=== PATIENT | male | born 1965 | race African-American/Black ===

== ENCOUNTER 2024-01-03 18:16 | Inpatient (IN) | payer OTHER ==
[2024-01-03 19:00] VITALS: BMI 27.3
[2024-01-03] MEDS ORDERED: NALOXONE HCL (KLOXXADO) 8 MG SPRAY NS PRN (20:42)
[2024-01-03] MEDS ORDERED: BISMUTH SUBSALICYLATE 524 MG/30 ML PO PRN (20:42)
[2024-01-03] MEDS ORDERED: BENZOCAINE/MENTHOL (CHLORASEPTIC ) LOZENGE MM PRN (20:42)
[2024-01-03] MEDS ORDERED: MAG HYDROX/AL HYDROX/SIMETH 30 ML UNIT-DOSE CUP PO PRN (20:42)
[2024-01-03] MEDS ORDERED: guaiFENesin 600 MG TABLET.ER (FP) PO PRN (20:42)
[2024-01-03] MEDS ORDERED: NALOXONE HCL 0.4 MG/ML VIAL IM PRN (20:42)
[2024-01-03] MEDS ORDERED: POLYETHYLENE GLYCOL (HEALTHYLAX) 3350 17 GM PACKET PO PRN (20:42)
[2024-01-03] MEDS ORDERED: NICOTINE POLACRILEX 2 MG GUM BUC PRN (20:42)
[2024-01-03] MEDS ORDERED: BENZONATATE 200 MG CAPSULE PO PRN (20:42)
[2024-01-03] MEDS ORDERED: LOPERAMIDE HCL 2 MG CAPSULE PO PRN (20:42)
[2024-01-03] MEDS ORDERED: MAGNESIUM HYDROX 2400MG/30ML ORAL SUSPENSION 30 ML CUP PO PRN (20:42)
[2024-01-03] MEDS ORDERED: chlordiazePOXIDE HCL 25 MG CAPSULE PO PRN (22:11)
[2024-01-04] MEDS: chlordiazePOXIDE HCL 25 MG CAPSULE PO SCH (00:10)
[2024-01-04] MEDS: THIAMINE HCL 100 MG TABLET (FP) PO SCH (00:12)
[2024-01-04] MEDS: MELATONIN 5 MG TABLETS PO SCH (00:12)
[2024-01-04] MEDS: METHOCARBAMOL 500 MG TABLET PO PRN (05:47)
[2024-01-04] MEDS: IBUPROFEN 600 MG TABLET (FP) PO PRN (05:47)
[2024-01-04] MEDS ORDERED: cloNIDine HCL 0.1 MG TABLET PO PRN (05:58)
[2024-01-04] MEDS: methaDONE HCL 10 MG TABLET (FOR DETOX USE ONLY) PO ONE (06:28)
[2024-01-04] MEDS: PRENATAL VITAMINS W/ FOLIC ACID TABLET (FP) PO SCH (10:41)
[2024-01-04] MEDS: NICOTINE 14 MG/24 HOURS TOPICAL PATCH TD SCH (10:41)
[2024-01-04 11:29] LABS: HEMATOCRIT 31.3 % (35.4-49); MCH 27.6 pg (25.7-33.7); MCHC 32.1 g/dl (32.0-35.9); MEAN PLT VOLUME 7.5 fl (7.5-11.1); PLATELET COUNT 428 10^3/uL (134-434); RBC 3.64 M/mm3 (4.00-5.60); RDW 16.8 % (11.9-15.9); WHITE BLOOD COUNT 8.4 K/mm3 (4.0-10.0)
[2024-01-04 11:40] LABS: CHLORIDE 104 mmol/L (98-107); SODIUM 139 mmol/L (136-145)
[2024-01-04 11:43] LABS: ALBUMIN 2.7 g/dl (3.4-5.0); ANION GAP 3 mmol/L (4-13); CALCIUM 8.2 mg/dL (8.5-10.1); CO2 33 mmol/L (21-32)
[2024-01-04 11:44] LABS: BLOOD UREA NITROGEN 8.6 mg/dL (7-18); GLUCOSE,RANDOM 150 mg/dL (74-106)
[2024-01-04 11:46] LABS: CREATININE 0.7 mg/dL (0.55-1.3); SGPT/ALT 26 U/L (13-61)
[2024-01-04 11:47] LABS: SGOT/AST 23 U/L (15-37)
[2024-01-04 11:48] LABS: BILIRUBIN,TOTAL 0.2 mg/dL (0.2-1); TOT PROT 6.1 g/dl (6.4-8.2)
[2024-01-04 11:49] LABS: ALK PHOS 95 U/L (45-117)
[2024-01-05] MEDS ORDERED: chlordiazePOXIDE HCL 25 MG CAPSULE PO SCH (05:00)
[2024-01-05] MEDS: ONDANSETRON *ODT* 4 MG TABLET SL PRN (10:29)
[2024-01-06] MEDS ORDERED: chlordiazePOXIDE HCL 10 MG CAPSULE PO PRN
[2024-01-06] MEDS ORDERED: chlordiazePOXIDE HCL 10 MG CAPSULE PO SCH (05:00)
[2024-01-06] MEDS: methaDONE HCL 10 MG TABLET (FOR DETOX USE ONLY) PO ONE (10:34)
[2024-01-07] MEDS ORDERED: chlordiazePOXIDE HCL 10 MG CAPSULE PO SCH (05:00)
[2024-01-08] MEDS ORDERED: chlordiazePOXIDE HCL 10 MG CAPSULE PO ONE (05:00)
[2024-01-08] MEDS: methaDONE HCL 10 MG TABLET (FOR DETOX USE ONLY) PO ONE (10:22)
[2024-01-09] MEDS: FERROUS SO4 325 MG TABLET (FP) PO SCH (10:52)
[2024-01-11] MEDS: hydrOXYzine PAMOATE 25 MG CAPSULE (FP) PO PRN (07:18)
[2024-01-11] MEDS: IBUPROFEN 400 MG TABLET (FP) PO PRN (09:59)
[2024-01-13] MEDS: ACETAMINOPHEN 325 MG TABLET (FP) PO PRN (22:01)
[2024-01-15] MEDS ORDERED: DICYCLOMINE HCL 10 MG CAPSULE PO PRN (15:11)
[2024-01-15] MEDS ORDERED: guaiFENesin 600 MG TABLET.ER (FP) PO PRN (15:11)
[2024-01-15] MEDS ORDERED: NICOTINE POLACRILEX 4 MG GUM BUC PRN (15:11)
[2024-01-15] MEDS: BENZOCAINE/MENTHOL (CHLORASEPTIC ) LOZENGE MM PRN (15:19)
[2024-01-15] MEDS: METHOCARBAMOL 500 MG TABLET PO PRN (15:19)
[2024-01-16] MEDS: BENZONATATE 200 MG CAPSULE PO PRN (06:13)
[2024-01-19] MEDS: AZITHROMYCIN 250 MG TABLET PO ONE (11:57)
[2024-01-19] MEDS: amLODIPine BESYLATE 5 MG TABLET (FP) PO ONE (11:59)
[2024-01-19] MEDS: AZITHROMYCIN IVPB 500 MG in DEXTROSE 5%-WATER - 250 ML IVPB ONE (12:01)
[2024-01-20] MEDS ORDERED: AZITHROMYCIN IVPB 250 MG in DEXTROSE 5%-WATER - 250 ML IVPB SCH (10:00)
[2024-01-20] MEDS: AZITHROMYCIN 250 MG TABLET PO SCH (10:07)
[2024-01-20] MEDS: amLODIPine BESYLATE 5 MG TABLET (FP) PO SCH (10:08)
[2024-01-22 07:08] VITALS: RESP 18
[2024-01-23 06:49] VITALS: TEMP 97.8
[2024-01-23 08:55] VITALS: BP 142/76; PULSE 115
== END 2024-01-23 09:18 | disposition home or self-care (01) | DRG 895 ==
LOC: YASAS 18:16 → Y3N 23:33 → Y3W 01-08 14:23
PROVIDERS: ADMIT Allergy & Immunology; ATTEND Psychiatry & Neurology Pain Medicine
PROC: HZ42ZZZ Group Counseling for Substance Abuse Treatment, Cognitive-Behavioral (ICD-10-PCS; principal; 2024-01-03)
DX: F11.20 Opioid dependence, uncomplicated (principal); F14.20 Cocaine dependence, uncomplicated; Z59.00 Homelessness unspecified; F17.210 Nicotine dependence, cigarettes, uncomplicated; D64.9 Anemia, unspecified; G47.00 Insomnia, unspecified; I10 Essential (primary) hypertension; E11.9 Type 2 diabetes mellitus without complications; J06.9 Acute upper respiratory infection, unspecified; R45.4 Irritability and anger; R26.89 Other abnormalities of gait and mobility; R11.2 Nausea with vomiting, unspecified; Z86.19 Personal history of other infectious and parasitic diseases; Z56.0 Unemployment, unspecified
CPT/HCPCS: 0241U-QW; 36415; 80053; 80307; 82962; 83036; 85027; 86593; 86780; 87635; 93005; 93010; Q0162